=== PATIENT | female | born 1990 | race Hispanic/Latino ===

== ENCOUNTER 2021-02-04 18:02 | Emergency (ER) | payer SELFPAY ==
[2021-02-04] MEDS ORDERED: Boostrix 0.5 ML (Tdap) VIAL ONE ×2 (18:12→18:27)
[2021-02-04] MEDS ORDERED: CEFAZOLIN 1 GM VIAL ONE (18:12)
[2021-02-04] MEDS ORDERED: Fentanyl 100 MCG/2 ML VIAL ONE (18:17)
== END 2021-02-04 20:20 | disposition home or self-care (01) ==
LOC: ERS 18:02
DX: T23.242A Burn of second degree of multiple left fingers (nail), including thumb, initial encounter (principal); X10.2XXA Contact with fats and cooking oils, initial encounter
CPT/HCPCS: 90471; 90715; 96365; 96375; J0690; J3010